=== PATIENT | female | born 1925 | race Caucasian/White ===

== ENCOUNTER 2016-11-12 00:33 | Emergency (ER) | payer MEDICARE ==
--- NOTE | 2016-11-12 00:51 | ER Document Report ---
ED General - General Stated Complaint: FALL,HEAD INJURY Notes: Patient is an 89-year-old female who [facility]. She fell. She does have a bed that slow to 4 and a padded 4. She still developed a hematoma over the right temporal area. Introitus loss of consciousness. Patient denies any pain. She denies any neck pain. No back pain. No extremity pain. No hip pain. No chest or abdominal pain. No other complaints at this time. TRAVEL OUTSIDE OF THE [place] IN LAST 30 DAYS: No - Related Data Allergies/Adverse Reactions: No Known Allergies Allergy (Verified 08/15/16 14:03) Home Medications: Current Home Medications Ascorbic Acid [Vitamin C] 1 cap.sr PO DAILY PRN 11/12/16 [History] Citalopram Hydrobromide [Celexa 10 mg Tablet] 10 mg PO DAILY 11/12/16 [History] Donepezil HCl [Donepezil HCl Odt] 10 mg PO DAILY 11/12/16 [History] Fluticasone Propionate [Fluticasone Propionate] 11/12/16 [History] Fluticasone Propionate [Fluticasone Propionate] 50 mcg NAINH QAM 11/12/16 [ History] Lorazepam [Lorazepam] 0.5 mg PO Q12 11/12/16 [History] Past Medical History - Social History Smoking Status: Never Smoker Frequency of alcohol use: None Drug Abuse: None Family History: Reviewed & Not Pertinent - Past Medical History Cardiac Medical History: Reports: Hx Congestive Heart Failure, Hx Hypertension Psychiatric Medical History: Reports: Hx Anxiety, Hx Dementia - Vascular, Hx Depression Traumatic Medical History: Reports: Hx Traumatic Brain Injury - x15 years. Past Surgical History: Reports: Hx Hysterectomy - Immunizations Hx Diphtheria, Pertussis, Tetanus Vaccination: No Review of Systems - Review of Systems Notes: My Normal Review Basic REVIEW OF SYSTEMS: CONSTITUTIONAL : Denies fever, chills, or sweats. Denies recent illness. CARDIOVASCULAR: Denies chest pain. RESPIRATORY: Denies cough, cold, or chest congestion. Denies shortness of breath, difficulty breathing, or wheezing. GASTROINTESTINAL: Denies abdominal pain. Denies nausea, vomiting, or diarrhea. Denies constipation. Last BM: MUSCULOSKELETAL: Denies neck or back pain or joint pain or swelling. SKIN: Skin tear right forearm. NEUROLOGICAL: Denies altered mental status or loss of consciousness. Denies headache. Denies weakness or paralysis or loss of use of either side. Denies problems with gait or speech. Denies sensory or motor loss. ALL OTHER SYSTEMS REVIEWED AND NEGATIVE. Physical Exam - Vital signs Vitals: Temp Pulse Resp BP Pulse Ox 97.9 F 63 14 119/55 L 100 11/12/16 00:50 11/12/16 00:50 11/12/16 00:50 11/12/16 00:50 11/12/16 00:50 - Notes Notes: General Appearance: Well nourished, alert, cooperative, no acute distress, no obvious discomfort. Vitals: reviewed, See vital signs table. Head: Small hematoma to the right temporal area. Eyes: PERRL, EOMI, Conjuctiva clear Mouth: No decreasd moisture Neck: Supple, no neck tenderness, No thyromegaly. Unable to place the patient' s neck through range of motion without her having any pain. She has no pain to palpation of the neck. Lungs: No wheezing, No rales, No rhonci, No accessory muscle use, good air exchange bilaterally. Heart: Normal rate, Regular rythm, No murmur, no rub Abdomen: Normal BS, soft, No rigidity, No abdominal tenderness, No guarding, no rebound, no abdominal masses, no organomegaly Extremities: strength 5/5 in all extremities, good pulses in all extremities, no swelling or tenderness in the extremities, no edema.. Full range of motion of bilateral hips without pain. Skin: warm, dry, appropriate color, no rash Neuro: speech clear, oriented x 2, normal affect, responds appropriately to questions. Cranial nerves II through XII are intact. Distal sensation intact. No focal neurologic deficits on exam. Course - Vital Signs Vital signs: Temp Pulse Resp BP Pulse Ox 97.9 F 63 14 119/55 L 100 11/12/16 00:50 11/12/16 00:50 11/12/16 00:50 11/12/16 00:50 11/12/16 01:00 - Transfer of Care Notes: 11/12/16 01:31 CT scan of the head was negative. She has just a very small hematoma on the right side. Neurologic exam is normal. She had no pain to palpation of her neck and no pain with range of motion of her neck and therefore CT scan of the neck was obtained. [facility] to [facility]. Encouraged to return to ER immediately if she has severe headache, vomiting, or appears unwell. Discharge - Discharge Clinical Impression: History of fall Minor head injury Qualifiers: Encounter type: initial encounter Qualified Code(s): S00.90XA - Unspecified superficial injury of unspecified part of head, initial encounter Condition: Good Disposition: HOME, SELF-CARE Additional Instructions: Please return to the ER immediately if Mr. Wood has increased confusion, severe headache, or vomiting as these could be signs of a delayed head bleed. Her CT scan of her brain tonight was negative.
[2016-11-12 02:15] VITALS: BP 126/66
== END 2016-11-12 02:15 | disposition home or self-care (01) ==
LOC: ER 00:33
DX: S00.83XA Contusion of other part of head, initial encounter (principal); W19.XXXA Unspecified fall, initial encounter; Y92.129 Unspecified place in nursing home as the place of occurrence of the external cause; Z79.899 Other long term (current) drug therapy
CPT/HCPCS: 70450; 99284

== ENCOUNTER 2016-11-15 16:47 | Emergency (ER) | payer MEDICARE ==
[2016-11-15 17:22] VITALS: BP 119/52
[2016-11-15] MEDS ORDERED: SULFAMETHOXAZOLE/TRIMETHOPRIM 800-160 MG TABLET PO ONE (18:41)
[2016-11-15] MEDS ORDERED: DIPH/PERTUSS(ACELL)/TETANUS VAC/PF 0.5 ML SYR (>=10YO) IM ONE (18:43)
--- NOTE | 2016-11-15 18:43 | ER Document Report ---
ED Wound - General Chief Complaint: Wound Infection Stated Complaint: POSSIBLE WOUND INFECTION Time seen by provider: 18:42 Mode of Arrival: Stretcher Information source: Patient, Outside Facility Records TRAVEL OUTSIDE OF THE [place] IN LAST 30 DAYS: No - HPI Patient complains to provider of: Laceration Occurred: Other - 3 days ago Onset/Duration: Persistent, Worse Quality of pain: Achy Severity: Mild Pain Level: 1 Context: Injury Skin Color: Normal Capillary refill: < 3 seconds Sensations intact: Yes Distal pulses present: Yes Associated Symptoms: Drainage Notes: 89-year-old female sent from local group home for evaluation of wounds to the right forearm, group home reports that patient fell 3 days ago, she is now having some discolored drainage from the wound on her right forearm, patient denies any injury or pain elsewhere, no fever - Related Data Allergies/Adverse Reactions: No Known Allergies Allergy (Verified 08/15/16 14:03) Past Medical History - General Information source: Patient, Transfer Record - Social History Smoking Status: Current Every Day Smoker Family History: Reviewed & Not Pertinent - Past Medical History Cardiac Medical History: Reports: Hx Congestive Heart Failure, Hx Hypertension Psychiatric Medical History: Reports: Hx Anxiety, Hx Dementia - Vascular, Hx Depression Traumatic Medical History: Reports: Hx Traumatic Brain Injury - x15 years. Past Surgical History: Reports: Hx Hysterectomy - Immunizations Hx Diphtheria, Pertussis, Tetanus Vaccination: No Review of Systems - Review of Systems Constitutional: No symptoms reported EENT: No symptoms reported Cardiovascular: No symptoms reported Respiratory: No symptoms reported Gastrointestinal: No symptoms reported Genitourinary: No symptoms reported Female Genitourinary: No symptoms reported Musculoskeletal: No symptoms reported Skin: See HPI Hematologic/Lymphatic: No symptoms reported Neurological/Psychological: No symptoms reported -: Yes All other systems reviewed and negative Physical Exam - Vital signs Vitals: Temp Pulse Resp BP Pulse Ox 98.6 F 52 L 16 119/52 L 93 11/15/16 17:14 11/15/16 17:14 11/15/16 17:14 11/15/16 17:14 11/15/16 17:14 Interpretation: Normal - General General appearance: Appears well, Alert - HEENT Head: Normocephalic, Atraumatic Eyes: Normal Pupils: PERRL - Respiratory Respiratory status: No respiratory distress Chest status: Nontender Breath sounds: Normal Chest palpation: Normal - Cardiovascular Rhythm: Regular Heart sounds: Normal auscultation Murmur: No - Abdominal Inspection: Normal Distension: No distension Bowel sounds: Normal Tenderness: Nontender Organomegaly: No organomegaly - Back Back: Normal, Nontender - Extremities General upper extremity: Normal inspection, Normal ROM, Normal temperature General lower extremity: Normal inspection, Nontender, Normal color, Normal ROM , Normal temperature, Other - Ecchymosis to left lower leg anteriorly. No: Gia's sign Forearm: Other - 3 cm skin tear to the dorsal surface of the right forearm with mild surrounding erythema and swelling, to superficial 2 cm lacerations with a small amount of serous drainage - Neurological Neuro grossly intact: Yes Cognition: Normal Orientation: AAOx4 [place] Coma Scale Eye Opening: Spontaneous [place] Coma Scale Verbal: Oriented Shani Coma Scale Motor: Obeys Commands [place] Coma Scale Total: 15 Speech: Normal Motor strength normal: LUE, RUE, LLE, RLE Sensory: Normal - Psychological Associated symptoms: Normal affect, Normal mood - Skin Skin Temperature: Warm Skin Moisture: Dry Skin Color: Normal Course - Re-evaluation Re-evalutation: 11/15/16 19:32 Patient with a open wound to the right forearm, skin tear with superficial all amount of serous drainage, surrounding erythema and swelling consistent with possible wound infection, patient was started on antibiotics and provided with a tetanus shot in the emergency room as well as wound care instructions, patient acknowledges understanding and agreement with this plan - Vital Signs Vital signs: Temp Pulse Resp BP Pulse Ox 98.6 F 52 L 16 119/52 L 93 11/15/16 17:14 11/15/16 17:14 11/15/16 17:14 11/15/16 17:14 11/15/16 17:14 Discharge - Discharge Clinical Impression: Wound drainage Condition: Stable Disposition: HOME, SELF-CARE Instructions: Antibiotic Ointment Protection ([facility]), Laceration Care ([facility]), Prophylactic Antibiotic ([facility]), Soap Cleansing ([facility]), Tetanus Immunization Given ([facility]) Additional Instructions: Follow up with your primary care provider in 2-3 days for wound check. Keep wound clean and covered with antibiotic ointment and a clean dressing. Gently rinse with warm water and soap twice daily. Return to the emergency room immediately if symptoms worsen or any additional concerns. Prescriptions: Sulfamethoxazole/Trimethoprim [Bactrim Ds Tablet] 1 each PO BID #20 tablet Referrals: JOSE WELLER MD [Primary Care Provider] - Follow up as needed
== END 2016-11-15 20:40 | disposition home or self-care (01) ==
LOC: ER 16:47
DX: S51.801A Unspecified open wound of right forearm, initial encounter (principal); W19.XXXA Unspecified fall, initial encounter; Y92.129 Unspecified place in nursing home as the place of occurrence of the external cause; F17.200 Nicotine dependence, unspecified, uncomplicated; I50.9 Heart failure, unspecified; I10 Essential (primary) hypertension; Z90.710 Acquired absence of both cervix and uterus; Z23 Encounter for immunization
CPT/HCPCS: 99283; 90471; 90715; A9270